=== PATIENT | male | born 1985 | race African-American/Black ===

== ENCOUNTER 2016-11-28 18:01 | Emergency (ER) | payer OTHER ==
[~2016-11-28] VITALS: Ht 175.3 cm; Wt 69.4 kg
[2016-11-28 18:09] VITALS: BP 157/91; PULSE 76; RESP 16; TEMP 98.4; O2SAT 97
[2016-11-28] MEDS ORDERED: LIDOCAINE HCL 1% 50 ML VIAL INFIL ONE (18:45)
[2016-11-28] MEDS ORDERED: BUPIVACAINE HCL PF 0.5% 10 ML VIAL INFIL ONE (18:45)
[2016-11-28] MEDS ORDERED: TETANUS/DIPHTHERIA TOXOID ADULT 0.5 ML VIAL IM ONE (18:45)
--- NOTE | 2016-11-28 18:52 | PD ---
HPI Chief Complaint: Injury Time Seen by Provider: 18:45 Travel History International Travel<30 days: No Contact w/Intl Traveler<30days: No Traveled to known affect area: No History of Present Illness HPI 31-year-old male presents to the emergency room for evaluation of right third finger pain, swelling for the past few days. Patient slammed his finger between 2 weights 2 weeks ago. He had mild pain at the time but was able to continue to play basketball and didn't think much of it. He did not sustain a laceration. He states about 4 days ago, his finger started hurting and he developed extreme swelling today. He soaked it in warm water and took ibuprofen without significant relief in symptoms. Patient denies fever, chills , nausea, vomiting. Unknown last tetanus. [facility] Past Medical History Medical History: Denies Significant Hx Tetanus Vaccination: Unknown Influenza Vaccination: No Past Surgical History Abdominal Surgery: Yes (HERNIA) Social History Alcohol Use: No Tobacco Use: No Substance Use: No Allergies-Medications (Allergen,Severity, Reaction): Coded Allergies: No Known Allergies (Unverified , 11/28/16) Reported Meds & Prescriptions Reported Meds & Active Scripts Active No Active Prescriptions or Reported Medications Review of Systems Except as stated in HPI: all other systems reviewed are Neg Physical Exam Narrative GENERAL: Well-nourished, well-developed male in no acute distress. Afebrile. Ambulatory. SKIN: Focused skin assessment warm/dry. There is an indurated area in the right middle finger which measures about 2 cm in diameter. It is fluctuant but there is no pointing or drainage. There is a zone of inflammation around it but no lymphangitis. HEAD: Normocephalic. EYES: No scleral icterus. No injection or drainage. NECK: Supple, trachea midline. No JVD or lymphadenopathy. CARDIOVASCULAR: Regular rate and rhythm without murmurs, gallops, or rubs. RESPIRATORY: Breath sounds equal bilaterally. No accessory muscle use. PSYCHIATRIC: No delusional thought processes. No hallucinations. Data Data Last Documented VS Vital Signs Date Time Temp Pulse Resp B/P Pulse Ox O2 Delivery O2 Flow Rate FiO2 11/28/16 18:09 98.4 76 16 157/91 97 Orders Bupivacaine Pf 0.5% Inj (Marcaine Pf 0.5 (11/28/16 18:45) Lidocaine 1% Inj (50 Ml) (Xylocaine 1% I (11/28/16 18:45) Tetanus/Diphtheria Tox Adult (Tetanus/Di (11/28/16 18:45) MDM Medical Decision Making Medical Screen Exam Complete: Yes Emergency Medical Condition: Yes Medical Record Reviewed: Yes Differential Diagnosis Paronychia versus solid versus saline as versus abscess Narrative Course 31-year-old male presents to the emergency room for evaluation of right third finger pain and swelling for the past few days. Patient injured the same finger 2 weeks ago but had no symptoms after injury. Physical exam reveals a large paronychia and possible felon of the right third finger. Area was numbed and incision and drainage was performed, see procedure note for details. He will be discharged on prescription for Bactrim and told to follow up with her primary care physician and return for worsening symptoms. He understands and agrees to plan. Procedures Procedure Narrative INCISION AND DRAINAGE OF ABSCESS: The area was prepped and was sterilely draped. A digital block was performed using 1% lidocaine and 0.5% bupivacaine with a total number 5 mL was used to anesthetize the area properly. A number 11 scalpel was used to make a 1 cm incision across the area of the abscess. The abscess was drained, complex loculations were broken down, and irrigated with normal saline. Cultures were obtained. Sterile dressing applied. Diagnosis Primary Impression: Paronychia of right middle finger Additional Impression: Felon of finger of right hand Referrals: Primary Care Physician Patient Instructions: General Instructions, Paronychia (ED) Additional Instructions: Rest and drink plenty of fluids. Take Bactrim as directed, until gone. Follow up with a primary care physician. Return to emergency room for worsening symptoms, as discussed. Med/Other Pt SpecificInfo: Prescription(s) given Scripts Sulfamethoxazole-Trimethoprim (Bactrim DS)800-160 Mg Tab1 Tab PO BID #20 TAB Ref 0 Prov:Suhas Mayfield MD 11/28/16 Disposition: 01 DISCHARGE HOME Condition: Stable Yoon Nolan November 28, 2016 18:52
[2016-11-28] MEDS ORDERED: BACT800T5 PO (19:03)
== END 2016-11-28 19:18 | disposition home or self-care (01) ==
LOC: PHEFT 18:01
DX: L03.011 Cellulitis of right finger (principal)
CPT/HCPCS: 10060; 86403; 87070; 87077; 87185; 87186; 87205; 90471; 90714

== ENCOUNTER 2016-12-07 19:24 | Inpatient (IN) | payer OTHER ==
[~2016-12-07] VITALS: Ht 175.3 cm; Wt 67.3 kg
[~2016-12-07 19:24] MED LIST: BACT800T5 PO
[2016-12-07 19:28] VITALS: BP 108/50; PULSE 110; RESP 20; TEMP 98.1; O2SAT 94
[2016-12-07 19:41] VITALS: BP 125/79; PULSE 89; RESP 18; TEMP 100.2; O2SAT 95
[2016-12-07] MEDS ORDERED: SODIUM CHLOR 0.9% 1000 ML INJ 1,000 ML IV ONE (19:55)
[2016-12-07] MEDS ORDERED: ONDANSETRON HCL 4 MG/2 ML VIAL IV ONE (20:00)
[2016-12-07] MEDS ORDERED: ACETAMINOPHEN 325 MG TAB PO ONE (20:00)
--- NOTE | 2016-12-07 20:00 | PD ---
HPI Chief Complaint: Fever Time Seen by Provider: 19:51 Travel History International Travel<30 days: No Contact w/Intl Traveler<30days: No Traveled to known affect area: No History of Present Illness HPI 31-year-old male seen in the emergency department on 11/28/16 for right third finger paronychia which was incised and drained and he was discharged home with a prescription for Bactrim which she has been compliant with, here for evaluation of fever, nausea, and vomiting. Patient reports that he has had a fever for the last week with nausea and vomiting, last vomiting was a couple days ago. He has had very little to eat or drink because he feels nauseous. He states his stomach feels "weird," but denies abdominal pain. No diarrhea. No cough. States that his right third finger feels improved. PFSH Past Medical History ?: Not Past Surgical History Abdominal Surgery: Yes (HERNIA) Social History Alcohol Use: No Tobacco Use: No Substance Use: No Allergies-Medications (Allergen,Severity, Reaction): Coded Allergies: No Known Allergies (Unverified , 11/28/16) Reported Meds & Prescriptions Reported Meds & Active Scripts Active Bactrim DS (Sulfamethoxazole-Trimethoprim) 800-160 Mg Tab 1 Tab PO BID Review of Systems Except as stated in HPI: all other systems reviewed are Neg Physical Exam Narrative GENERAL: Well-developed, well-nourished, awake, alert, comfortable, no acute distress. SKIN: Focused skin assessment warm/dry. Right third finger with mild desquamation distally and mild edema distally without warmth, without erythema, without purulent drainage. HEAD: Atraumatic. Normocephalic. EYES: Pupils equal and round. No scleral icterus. No injection or drainage. ENT: Mucous membranes pink and dry. NECK: No nuchal rigidity. CARDIOVASCULAR: Regular rate and rhythm. RESPIRATORY: No accessory muscle use. Clear to auscultation. Breath sounds equal bilaterally. GASTROINTESTINAL: Abdomen soft, non-tender, nondistended. MUSCULOSKELETAL: No obvious deformities. No clubbing. No cyanosis. No edema. NEUROLOGICAL: Awake and alert. No obvious cranial nerve deficits. Motor grossly within normal limits. Normal speech. PSYCHIATRIC: Appropriate mood and affect; insight and judgment normal. Data Data Last Documented VS Vital Signs Date Time Temp Pulse Resp B/P Pulse Ox O2 Delivery O2 Flow Rate FiO2 6/9/17 19:41 100.2 89 18 125/79 95 Orders Complete Blood Count With Diff (12/07/16 19:55) Comprehensive Metabolic Panel (12/07/16 19:55) Lactic Acid Sepsis Protocol (12/07/16 19:55) Blood Culture (12/07/16 19:55) Ecg Monitoring (12/07/16 19:55) Iv Access Insert/Monitor (12/07/16 19:55) Oximetry (12/07/16 19:55) Acetaminophen (Tylenol) (12/07/16 20:00) Ondansetron Inj (Zofran Inj) (12/07/16 20:00) Sodium Chlor 0.9% 1000 Ml Inj (Ns 1000 M (12/07/16 19:55) Ceftriaxone Inj (Rocephin Inj) (12/07/16 21:00) Vancomycin Inj (Vancomycin Inj) (12/07/16 21:00) Labs Laboratory Tests Test 12/07/16 20:00 White Blood Count 2.1 TH/MM3 Red Blood Count 5.28 MIL/MM3 Hemoglobin 15.8 GM/DL Hematocrit 46.8 % Mean Corpuscular Volume 88.7 FL Mean Corpuscular Hemoglobin 29.9 PG Mean Corpuscular Hemoglobin 33.7 % Concent Red Cell Distribution Width 11.0 % Platelet Count 205 TH/MM3 Mean Platelet Volume 8.1 FL Neutrophils (%) (Auto) 67.1 % Lymphocytes (%) (Auto) 21.3 % Monocytes (%) (Auto) 6.9 % Eosinophils (%) (Auto) 4.4 % Basophils (%) (Auto) 0.3 % Neutrophils # (Auto) 1.5 TH/MM3 Lymphocytes # (Auto) 0.4 TH/MM3 Monocytes # (Auto) 0.1 TH/MM3 Eosinophils # (Auto) 0.1 TH/MM3 Basophils # (Auto) 0.0 TH/MM3 CBC Comment DIFF FINAL Differential Comment Sodium Level 133 MEQ/L Potassium Level 4.2 MEQ/L Chloride Level 97 MEQ/L Carbon Dioxide Level 25.3 MEQ/L Anion Gap 11 MEQ/L Blood Urea Nitrogen 17 MG/DL Creatinine 1.50 MG/DL Estimat Glomerular Filtration 66 ML/MIN Rate Random Glucose 101 MG/DL Lactic Acid Level 1.0 mmol/L Calcium Level 7.9 MG/DL Total Bilirubin 0.3 MG/DL Aspartate Amino Transf 44 U/L (AST/SGOT) Alanine Aminotransferase 38 U/L (ALT/SGPT) Alkaline Phosphatase 50 U/L Total Protein 8.1 GM/DL Albumin 3.9 GM/DL MDM Medical Decision Making Medical Screen Exam Complete: Yes Emergency Medical Condition: Yes Differential Diagnosis Sepsis, bacteremia, dehydration, viral illness, enteritis, metabolic abnormality Narrative Course Initial vital signs show heart rate 89, blood pressure 125/79, pulse ox 95% on room air, oral temp of 100.2F. CBC shows WBC 2.1, hemoglobin 15.8, hematocrit 46.8, platelets 205, neutrophils 77.1%. (Calculated ANC is 1400) CMP is remarkable for creatinine 1.5, GFR 66, calcium 7.9, otherwise unremarkable. Lactic acid is 1.0. There are no baseline labs in our system to compare. The patient has not seen a primary care physician, but does have [facility] insurance. Patient does have slight neutropenia with a fever which she states has been going on for last week. Unknown baseline leukocyte status. He denies history of HIV or HIV exposures. Neutropenia could be secondary to infection or a side effect to Bactrim. Patient's right third finger is still swollen distally. There is no fluctuance or induration. Mild warmth but no erythema. There is desquamation of the skin at the distal end of the finger. Negative Nikolsky sign. No red streaks. No crepitus. Patient will be started on Rocephin and vancomycin as his culture from 10 days ago grew out gram-positive cocci as well as gram-negative rods. He will be admitted for overnight observation for repeat CBC in the morning. Patient is amenable to this plan. Case discussed with [facility] physician Dr. Rivers who will admit the patient to his service. Diagnosis Primary Impression: Leukopenia Qualified Code: D72.819 - Leukopenia, unspecified type Additional Impressions: Febrile illness SIRS (systemic inflammatory response syndrome) Renal insufficiency Admitting Information Admitting Physician Requests: Sotero Cee MD Dec 07, 2016 20:00
[2016-12-07 20:12] LABS: AUTOMATED NEUTROPHIL # 1.5 TH/MM3 (1.8-7.7); BASOPHIL % 0.3 % (0.0-2.0); EOSINOPHIL # 0.1 TH/MM3 (0-0.4); EOSINOPHIL % 4.4 % (0.0-4.0); HEMATOCRIT 46.8 % (39.0-51.0); LYMPH % 21.3 % (9.0-44.0); LYMPHOCYTE # 0.4 TH/MM3 (1.0-4.8); MEAN CELL VOLUME 88.7 FL (80.0-100.0); MEAN CORPUSCULAR HEMOGLOBIN 29.9 PG (27.0-34.0); MEAN CORPUSCULAR HGB CONC 33.7 % (32.0-36.0); MONO % 6.9 % (0.0-8.0); NEUT % 67.1 % (16.0-70.0); PLATELET COUNT 205 TH/MM3 (150-450); RED BLOOD COUNT 5.28 MIL/MM3 (4.50-5.90); WHITE BLOOD COUNT 2.1 TH/MM3 (4.0-11.0)
[2016-12-07 20:13] LABS: HEMO FLAGS DIFF FINAL
[2016-12-07 20:19] LABS: CHLORIDE 97 MEQ/L (98-107); POTASSIUM 4.2 MEQ/L (3.5-5.1); SODIUM (NA) 133 MEQ/L (136-145)
[2016-12-07 20:23] LABS: ANION GAP 11 MEQ/L (5-15); BICARBONATE 25.3 MEQ/L (21.0-32.0); BLOOD UREA NITROGEN 17 MG/DL (7-18)
[2016-12-07 20:26] LABS: ALT (GPT) 38 U/L (12-78); AST (GOT) 44 U/L (15-37); GLOMERULAR FILTRATION RATE 66 ML/MIN (>89)
[2016-12-07 20:28] LABS: TOTAL BILIRUBIN ADULT 0.3 MG/DL (0.2-1.0)
[2016-12-07 20:29] LABS: ALKALINE PHOSPHATASE 50 U/L (45-117)
[2016-12-07] MEDS ORDERED: cefTRIAXone INJ 1,000 MG in SODIUM CHLORIDE 0.9% INJ 100 ML IV ONE (21:00)
[2016-12-07] MEDS ORDERED: VANCOMYCIN INJ 1,000 MG in SODIUM CHLOR 0.9% 250 ML INJ 250 ML IV ONE (21:00)
[2016-12-07 21:29] VITALS: BP 154/72; PULSE 87; RESP 16; TEMP 99.2; O2SAT 99
[2016-12-07] MEDS ORDERED: ACETAMINOPHEN 500 MG CPLT PO PRN (22:00)
[2016-12-07] MEDS ORDERED: TEMAZEPAM 15 MG CAP PO PRN (22:00)
[2016-12-07 23:40] VITALS: BP 121/67; PULSE 77; RESP 16; O2SAT 99
[2016-12-08] MEDS: SODIUM CHLOR 0.9% 1000 ML INJ 1,000 ML IV SCH ×2 (00:23→10:08)
[2016-12-08 00:25] VITALS: BP 112/63; PULSE 66; RESP 16; TEMP 97.9; O2SAT 96
[2016-12-08 07:20] LABS: POTASSIUM 4.2 MEQ/L (3.5-5.1)
[2016-12-08 07:22] LABS: MEAN CELL VOLUME 89.6 FL (80.0-100.0); MEAN CORPUSCULAR HEMOGLOBIN 28.9 PG (27.0-34.0); MEAN CORPUSCULAR HGB CONC 32.3 % (32.0-36.0); PLATELET COUNT 197 TH/MM3 (150-450); RED BLOOD COUNT 5.47 MIL/MM3 (4.50-5.90); RED CELL DISTRIBUTION WIDTH 11.2 % (11.6-17.2); WHITE BLOOD COUNT 1.5 TH/MM3 (4.0-11.0)
[2016-12-08 07:24] LABS: HEMO FLAGS AUTO DIFF
[2016-12-08 07:35] LABS: BICARBONATE 26.3 MEQ/L (21.0-32.0); TOTAL BILIRUBIN ADULT 0.3 MG/DL (0.2-1.0)
[2016-12-08 07:40] LABS: CALCIUM-PROTEIN CORRECTED 7.3 MG/DL (8.5-10.1)
[2016-12-08 07:50] LABS: BANDS 10 % (0-6); BASOPHILS 2 % (0-2); EOSINOPHILS 9 % (0-4); NEUTROPHIL # MANUAL DIFF 0.7 TH/MM3 (1.8-7.7); PLATELET ESTIMATE SMEAR NORMAL (NORMAL); PLATELET MORPHOLOGY NORMAL (NORMAL); POLYS (SEG NEUTROPHILS) 36 % (16-70); SCAN/DIFF FINAL DIFF MANUAL; WBC DIFF SAMPLE 100
--- NOTE | 2016-12-08 08:24 | HHI.HP ---
HPI Service [facility] Hospitalists Primary Care Physician No Primary Care Physician Admission Diagnosis leukopenia, febrile illness, SIRS, renal insufficiency Chief Complaint: fever, finger infection Travel History International Travel<30 Days: No Contact w/Intl Traveler <30 Da: No Traveled to Known Affected Are: No Sepsis Criteria SIRS Criteria (2 or more): WBC > 99092, < 4000 or > 10% bands Sepsis Criteria (SIRS+source): Infect source susp/known Criteria Outcome: Meets sepsis criteria History of Present Illness 31-year-old relatively healthy male seen in the emergency department on 11/28/16 for right third finger paronychia which was incised and drained and he was discharged home with a prescription for Bactrim which she has been compliant with returns here for evaluation of fever, nausea, and vomiting. Patient reports that he has had a fever for the last 4 days with nausea and vomiting, last vomiting was a couple days ago. Denies diarrhea. No foreign travel. No unusual foods. Denies any cough, sinus congestion, urinary symptoms. He has had very little to eat or drink because he feels nauseous. No abdominal pain but reports his stomach is a bit upset.. No diarrhea. No cough. States that his right third finger feels improved. He was noted to have leukopenia with mild renal insufficiency on ER evaluation. This may be associated with the Bactrim. He feels better this morning. He is a bit hungry and wants to try to eat more food morning. He was given IV vancomycin and ceftriaxone based on recent antimicrobial culture and sensitivity. He specifically denies any regular alcohol use or history of IV drug abuse. He is a [employer] and lives very "clean" life. He is not sexually active. He has never engaged in sex with a male partner. Review of Systems Constitutional: COMPLAINS OF: Diaphoretic episodes, Fever, Chills, Change in appetite Endocrine: DENIES: Heat/cold intolerance, Polydipsia, Polyuria, Polyphagia Eyes: DENIES: Blurred vision, Diplopia, Eye inflammation, Eye pain, Vision loss , Photosensitivity, Double Vision Ears, nose, mouth, throat: DENIES: Tinnitus, Hearing loss, Vertigo, Nasal discharge, Oral lesions, Throat pain, Hoarseness, Ear Pain, Running Nose, Epistaxis, Sinus Pain, Toothache, Odynophagia Respiratory: DENIES: Apneas, Cough, Snoring, Wheezing, Hemoptysis, Sputum production, Shortness of breath Cardiovascular: DENIES: Chest pain, Palpitations, Syncope, Dyspnea on Exertion , PND, Lower Extremity Edema, Orthopnea, Claudication Gastrointestinal: DENIES: Abdominal pain, Black stools, Bloody stools, BRB per rectum, Constipation, Diarrhea, GERD, Nausea, Reflux, Vomiting, Difficulty Swallowing, Anorexia, See HPI Musculoskeletal: DENIES: Joint pain, Muscle aches, Stiffness, Joint Swelling, Back pain, Neck pain Integumentary: COMPLAINS OF: Nail changes Hematologic/lymphatic: DENIES: Bruising, Lymphadenopathy Immunologic/allergic: DENIES: Eczema, Urticaria Neurologic: DENIES: Abnormal gait, Headache, Localized weakness, Paresthesias, Seizures, Speech Problems, Tremor, Poor Balance Psychiatric: COMPLAINS OF: Anxiety Past Family Social History Past Medical History Essentially negative Past Surgical History Inguinal hernia repair several years ago Some intestinal surgery at age 5 Reported Medications Bactrim for the last week Allergies: Coded Allergies: No Known Allergies (Unverified , 11/28/16) Family History Father has diabetes, mother has hypertension Social History Denies alcohol, tobacco or illicit drug use. He is a director of application development locally. He was born in [facility] and has lived here all his life. He lives with his parents, has no children and is not . Physical Exam Vital Signs Vital Signs Date Time Temp Pulse Resp B/P Pulse Ox O2 Delivery O2 Flow Rate FiO2 12/08/16 00:25 97.9 66 16 112/63 96 12/07/16 23:40 77 16 121/67 99 Room Air 12/07/16 21:29 99.2 87 16 154/72 99 Room Air 12/07/16 19:41 100.2 89 18 125/79 95 Physical Exam GENERAL: This is a well-nourished, well-developed patient, in no apparent distress. Pleasant, cooperative. SKIN: right middle finger with drying paronychia; no redness or d/c. No ttp. Cool and dry. HEAD: Atraumatic. Normocephalic. No temporal or scalp tenderness. EYES: Pupils equal round and reactive. Extraocular motions intact. No scleral icterus. No injection or drainage. ENT: Nose without bleeding, purulent drainage or septal hematoma. Throat without erythema, tonsillar hypertrophy or exudate. Uvula midline. Airway patent. NECK: Trachea midline. No JVD or lymphadenopathy. Supple, nontender, no meningeal signs. CARDIOVASCULAR: Regular rate and rhythm without murmurs, gallops, or rubs. RESPIRATORY: Clear to auscultation. Breath sounds equal bilaterally. No wheezes , rales, or rhonchi. GASTROINTESTINAL: Abdomen soft, non-tender, nondistended. No hepato-splenomegaly , or palpable masses. No guarding. MUSCULOSKELETAL: Extremities without clubbing, cyanosis, or edema except 3rd finger as noted. No joint tenderness, effusion, or edema noted. No calf tenderness. NEUROLOGICAL: Awake and alert. Cranial nerves II through XII intact. Motor and sensory grossly within normal limits. Five out of 5 muscle strength in all muscle groups. Normal speech. Laboratory Laboratory Tests Test 12/07/16 12/08/16 20:00 06:50 White Blood Count 2.1 1.5 Red Blood Count 5.28 5.47 Hemoglobin 15.8 15.8 Hematocrit 46.8 49.0 Mean Corpuscular Volume 88.7 89.6 Mean Corpuscular Hemoglobin 29.9 28.9 Mean Corpuscular Hemoglobin 33.7 32.3 Concent Red Cell Distribution Width 11.0 11.2 Platelet Count 205 197 Mean Platelet Volume 8.1 8.2 Neutrophils (%) (Auto) 67.1 Lymphocytes (%) (Auto) 21.3 Monocytes (%) (Auto) 6.9 Eosinophils (%) (Auto) 4.4 Basophils (%) (Auto) 0.3 Neutrophils # (Auto) 1.5 Lymphocytes # (Auto) 0.4 Monocytes # (Auto) 0.1 Eosinophils # (Auto) 0.1 Basophils # (Auto) 0.0 CBC Comment DIFF FINAL AUTO DIFF Differential Comment FINAL DIFF MANUAL Sodium Level 133 135 Potassium Level 4.2 4.2 Chloride Level 97 99 Carbon Dioxide Level 25.3 26.3 Anion Gap 11 10 Blood Urea Nitrogen 17 16 Creatinine 1.50 1.30 Estimat Glomerular Filtration 66 78 Rate Random Glucose 101 85 Lactic Acid Level 1.0 Calcium Level 7.9 7.4 Total Bilirubin 0.3 0.3 Aspartate Amino Transf 44 41 (AST/SGOT) Alanine Aminotransferase 38 35 (ALT/SGPT) Alkaline Phosphatase 50 46 Total Protein 8.1 7.4 Albumin 3.9 3.5 C-Reactive Protein LESS THAN 0.29 Differential Total Cells 100 Counted Neutrophils % (Manual) 36 Band Neutrophils % 10 Lymphocytes % 28 Monocytes % 15 Eosinophils % 9 Basophils % 2 Neutrophils # (Manual) 0.7 Platelet Estimate NORMAL Platelet Morphology Comment NORMAL Red Cell Morphology Comment NORMAL Protein Corrected Calcium 7.3 Date/Time Procedure Status Source Growth 12/07/16 20:05 Aerobic Blood Culture Received Blood Peripheral Pending 12/07/16 20:05 Anaerobic Blood Culture Received Blood Peripheral Pending Result Diagram: 12/08/16 0650 12/08/16 0650 Assessment and Plan Problem List: (1) SIRS (systemic inflammatory response syndrome) Status: Acute Plan: Does not appear septic. (2) Leukopenia Status: Acute Plan: Possibly associated with recent infection or antibiotic use. Given the monocyte elevation and recent fevers this could also be associated with virus. We'll check hepatitis and HIV screens although patient does very low risk based on his reported history. Discussed case with Dr Lovett around noon 12/08/16. See addendum. (3) Paronychia of right middle finger Status: Acute Plan: Much improved. Will switch abx. (4) Renal insufficiency Status: Acute Plan: Improved with IV fluid. Code Status full Discussed Condition With patient Problem Qualifiers (1) Leukopenia: Qualified Code: D72.819 - Leukopenia, unspecified type Quintin Rivers MD PhD Dec 08, 2016 08:24
[2016-12-08] MEDS ORDERED: DOXY100C PO (08:45)
[2016-12-08 09:22] VITALS: BP 128/66; PULSE 66; RESP 16; TEMP 98.9; O2SAT 98
[2016-12-08] MEDS: CALCIUM CARBONATE 500 MG CHEWABLE TAB CHEW SCH ×2 (10:08→20:59)
[2016-12-08 12:20] VITALS: BP 118/62; PULSE 65; RESP 16; TEMP 99.8; O2SAT 99
[2016-12-08] MEDS ORDERED: ONDANSETRON HCL 4 MG/2 ML VIAL IV PUSH PRN (12:45)
--- NOTE | 2016-12-08 12:47 | HHI.PR ---
Addendum to Inpatient Note Addendum Reason: Additional Documentation Additional Information Reviewed case with Dr Lovett production line manager for hematology. He agrees that leukopenia likely a/w recent infection and Bactrim. Will keep pt overnight to monitor progress and labs. Pt feeling somewhat better, but still with some nausea/gen malaise. He tolerated meals today. pt is agreeable to plan. If WBC worsening, will obtain formal oncology consult. Quintin Rivers MD PhD Dec 08, 2016 12:47
[2016-12-08] MEDS: DOXYCYCLINE HYCLATE 100 MG CAP PO SCH ×2 (13:03→21:09)
[2016-12-08 16:51] VITALS: BP 132/72; PULSE 74; RESP 12; TEMP 100.1; O2SAT 99
[2016-12-08 20:54] VITALS: BP 134/71; PULSE 71; RESP 12; TEMP 99.9; O2SAT 98
[2016-12-09 00:22] VITALS: BP 134/67; PULSE 68; RESP 12; TEMP 99.9; O2SAT 97
[2016-12-09 06:37] LABS: HEMATOCRIT 43.7 % (39.0-51.0); MEAN CELL VOLUME 89.4 FL (80.0-100.0); MEAN CORPUSCULAR HEMOGLOBIN 29.6 PG (27.0-34.0); MEAN CORPUSCULAR HGB CONC 33.2 % (32.0-36.0); PLATELET COUNT 176 TH/MM3 (150-450); RED BLOOD COUNT 4.89 MIL/MM3 (4.50-5.90); RED CELL DISTRIBUTION WIDTH 11.3 % (11.6-17.2); WHITE BLOOD COUNT 1.8 TH/MM3 (4.0-11.0)
[2016-12-09 06:38] LABS: CHLORIDE 103 MEQ/L (98-107); POTASSIUM 4.2 MEQ/L (3.5-5.1); SODIUM (NA) 138 MEQ/L (136-145)
[2016-12-09 06:42] LABS: ANION GAP 7 MEQ/L (5-15); BICARBONATE 27.8 MEQ/L (21.0-32.0); BLOOD UREA NITROGEN 12 MG/DL (7-18)
[2016-12-09 06:45] LABS: ALT (GPT) 32 U/L (12-78); AST (GOT) 40 U/L (15-37); GLOMERULAR FILTRATION RATE 95 ML/MIN (>89)
[2016-12-09 06:46] LABS: TOTAL BILIRUBIN ADULT 0.2 MG/DL (0.2-1.0)
[2016-12-09 06:48] LABS: ALKALINE PHOSPHATASE 40 U/L (45-117)
[2016-12-09 07:33] LABS: HEMO FLAGS AUTO DIFF
[2016-12-09 07:41] LABS: BANDS 2 % (0-6); BASOPHILS 3 % (0-2); EOSINOPHILS 1 % (0-4); POLYS (SEG NEUTROPHILS) 15 % (16-70); WBC DIFF SAMPLE 100
[2016-12-09 07:43] LABS: NEUTROPHIL # MANUAL DIFF 0.3 TH/MM3 (1.8-7.7)
[2016-12-09 07:50] LABS: PLATELET ESTIMATE SMEAR NORMAL (NORMAL); PLATELET MORPHOLOGY NORMAL (NORMAL); SCAN/DIFF FINAL DIFF MANUAL
[2016-12-09 08:00] VITALS: BP 129/76; PULSE 62; RESP 18; TEMP 96.2; O2SAT 100
--- NOTE | 2016-12-09 08:38 | HHI.PR ---
Subjective Remarks Feeling much better. Feels stronger. Tolerating oral intake. Has been ambulating in the room without any difficulty. Denies any fevers or chills. Denies any cough or urinary symptoms. The right finger wound is much improved as noted previously. Patient desires discharge home today. Objective Vitals Vital Signs Date Time Temp Pulse Resp B/P Pulse Ox O2 Delivery O2 Flow Rate FiO2 12/09/16 08:00 96.2 62 18 129/76 100 12/09/16 00:22 99.9 68 12 134/67 97 12/08/16 20:54 99.9 71 12 134/71 98 12/08/16 16:51 100.1 74 12 132/72 99 12/08/16 12:20 99.8 65 16 118/62 99 12/08/16 09:22 98.9 66 16 128/66 98 12/08/16 12/08/16 12/09/16 15:00 23:00 07:00 Intake Total 1000 ml Balance 1000 ml Intake Oral 1000 ml # Voids 5 2 GENERAL: Awake, alert and oriented. No acute distress. Pleasant and cooperative. SKIN: Warm and dry. Right third finger distally with xerotic area from recent paronychia. No redness or drainage. No tenderness to palpation. No other wounds noted. No petechiae or other rashes noted. HEAD: Normocephalic. EYES: No scleral icterus. No injection or drainage. NECK: Supple, trachea midline. No JVD or lymphadenopathy. CARDIOVASCULAR: Regular rate and rhythm without murmurs, gallops, or rubs. RESPIRATORY: Breath sounds equal bilaterally. No accessory muscle use. GASTROINTESTINAL: Abdomen soft, non-tender, nondistended. Bowel sounds normal. MUSCULOSKELETAL: No cyanosis, or edema. BACK: Nontender without obvious deformity. No CVA tenderness. Result Diagram: [id number]/09/1654612/[id number]/16546 Urinary Catheter: No Vascular Central Line Catheter: No A/P Problem List: (1) SIRS (systemic inflammatory response syndrome) Status: Acute Plan: Does not appear septic. Likely has a viral infection given his rising lymphocyte count. (2) Leukopenia Status: Acute Plan: Possibly associated with recent infection or antibiotic use. Given the lymphocyte and monocyte elevation and recent fevers this could also be associated with virus. HIV and hepatitis pending. Discussed case with Dr Lovett around noon 6/10/17. See addendum from that date. (3) Paronychia of right middle finger Status: Acute Plan: Much improved. We'll stop antibiotic. (4) Renal insufficiency Status: Acute Plan: Improved with IV fluid. Discharge Planning Discharge home today. Advised patient to call or return immediately with fever, chills, malaise. Additionally advised him that he can become quite ill if he became infected with bacterial agent given his low neutrophil count. I have advised him to observe relative isolation and to follow up closely with his primary care physician this week. Problem Qualifiers (1) Leukopenia: Qualified Code: D72.819 - Leukopenia, unspecified type Quintin Rivers MD PhD Dec 09, 2016 08:38
[2016-12-09] MEDS ORDERED: Calcium Carbonate Chew CHEW (08:40)
--- NOTE | 2016-12-09 08:43 | HHI.DS ---
Discharge Summary Admission Date Dec 07, 2016 at 20:51 Discharge Date: Dec 09, 2016 Admitting Diagnosis leukopenia, febrile illness, SIRS, renal insufficiency (1) SIRS (systemic inflammatory response syndrome) Diagnosis: Principal (2) Leukopenia Diagnosis: Principal (3) Paronychia of right middle finger Diagnosis: Secondary (4) Renal insufficiency Diagnosis: Secondary Brief History 31-year-old relatively healthy male seen in the emergency department on 11/28/16 for right third finger paronychia which was incised and drained and he was discharged home with a prescription for Bactrim which she has been compliant with returns here for evaluation of fever, nausea, and vomiting. Patient reports that he has had a fever for the last 4 days with nausea and vomiting, last vomiting was a couple days ago. Denies diarrhea. No foreign travel. No unusual foods. Denies any cough, sinus congestion, urinary symptoms. He has had very little to eat or drink because he feels nauseous. No abdominal pain but reports his stomach is a bit upset.. No diarrhea. No cough. States that his right third finger feels improved. He was noted to have leukopenia with mild renal insufficiency on ER evaluation. This may be associated with the Bactrim. He feels better this morning. He is a bit hungry and wants to try to eat more food morning. He was given IV vancomycin and ceftriaxone based on recent antimicrobial culture and sensitivity. He specifically denies any regular alcohol use or history of IV drug abuse. He is a [employer] and lives very "clean" life. He is not sexually active. He has never engaged in sex with a male partner. CBC/BMP: 12/09/16 0547 12/09/16 0547 Significant Findings Laboratory Tests Test 12/07/16 12/08/16 12/09/16 20:00 06:50 05:47 White Blood Count 2.1 TH/MM3 1.5 TH/MM3 1.8 TH/MM3 (4.0-11.0) (4.0-11.0) (4.0-11.0) Red Cell Distribution Width 11.0 % 11.2 % 11.3 % (11.6-17.2) (11.6-17.2) (11.6-17.2) Eosinophils (%) (Auto) 4.4 % (0.0-4.0) Neutrophils # (Auto) 1.5 TH/MM3 (1.8-7.7) Lymphocytes # (Auto) 0.4 TH/MM3 (1.0-4.8) Sodium Level 133 MEQ/L 135 MEQ/L (136-145) (136-145) Chloride Level 97 MEQ/L (98-107) Creatinine 1.50 MG/DL (0.60-1.30) Estimat Glomerular Filtration 66 ML/MIN (>89) 78 ML/MIN (>89) Rate Calcium Level 7.9 MG/DL 7.4 MG/DL 7.8 MG/DL (8.5-10.1) (8.5-10.1) (8.5-10.1) Aspartate Amino Transf 44 U/L (15-37) 41 U/L (15-37) 40 U/L (15-37) (AST/SGOT) Band Neutrophils % 10 % (0-6) Monocytes % 15 % (0-8) 19 % (0-8) Eosinophils % 9 % (0-4) Neutrophils # (Manual) 0.7 TH/MM3 0.3 TH/MM3 (1.8-7.7) (1.8-7.7) Protein Corrected Calcium 7.3 MG/DL (8.5-10.1) Neutrophils % (Manual) 15 % (16-70) Lymphocytes % 60 % (9-44) Basophils % 3 % (0-2) Alkaline Phosphatase 40 U/L (45-117) Albumin 3.0 GM/DL (3.4-5.0) Hospital Course Patient progressed well throughout the hospital course. He had slight elevations of temperature 100.1 but otherwise was afebrile. His malaise improved. It is noted that his white blood cell count did remain low and neck she reached a carmella of 1.5 on the day prior to discharge. White count was 1.8 on the day of discharge with elevated lymphocytes and monocytes likely indicative of underlying viral infection. We do not have baseline labs on the patient so it is difficult to determine what his typical white blood cell count is. He appears well and is desirous of discharge home. He has been able to tolerate oral intake well and ambulates about the room with no difficulty. Case was discussed with Dr. Lovett on day prior to discharge. He believed the recent Bactrim exposure may have contributed to the leukopenia as well as possible recent infection. Patient was given strict instructions on reasons to return such as fevers chills general malaise. Pt Condition on Discharge: Stable Discharge Disposition: Discharge Home Discharge Instructions DIET: Follow Instructions for: As Tolerated, No Restrictions Activities you can perform: Regular-No Restrictions Other Activity Instructions: Initially observe relative isolation. Follow up Referrals: PCP Follow-up New Orders: BASIC METABOLIC PROF - 2-3 Days CBC WITH DIFF - 2-3 Days New Medications: ([Calcium Carbonate Chew]) 500 MG CHEW 500 MG CHEW Q12HR #14 TAB.CHEW Quintin Rievrs MD PhD Dec 09, 2016 08:43
== END 2016-12-09 09:20 | disposition home or self-care (01) | DRG 866 ==
LOC: PHED 19:24 → PHEDA 20:51 → PH3B 23:52 → OBSVTOIN 12-08 12:45
PROVIDERS: ADMIT Family Medicine; ATTEND Family Medicine
DX: B34.9 Viral infection, unspecified (principal); D70.9 Neutropenia, unspecified; N28.9 Disorder of kidney and ureter, unspecified; L03.011 Cellulitis of right finger
CPT/HCPCS: 80053; 80074; 83605; 84145; 85007; 85025; 85027; 86140; 86703; 87040; 87497; 87804; 96361; 96374; 96375; G0378; J0696; J2405; J3370; J7030; J7050